=== PATIENT | female | born 2000 | race Caucasian/White ===

== ENCOUNTER 2024-10-09 15:08 | Emergency (ER) | payer OTHER, SELFPAY ==
[2024-10-09 15:11] VITALS: BP 110/70
--- NOTE | 2024-10-09 15:35 | ED.GENMED ---
History of Present Illness
General
Chief Complaint: Crisis Evaluation
Source: patient
Exam Limitations: none
Time Seen by Provider: 10/09/24 15:20
Nursing documentation reviewed up to this point in time: agreed with
History of Present Illness
History of Present Illness:
24-year-old female history of depression recent with her break-up feeling depressed cut at her wrist with scissors last evening, came to crisis today sent here to be medically evaluated, unsure of last tetanus shot abrasions are superficial, denies
any ingestions, no overt intoxication, denies
Past History
Past History
ED Past Medical History: Psychiatric
Social History
Tobacco: Non-smoker
Alcohol: None
Drug: None
Personal: Single
Living: with family
Employment: Employed
Review of Systems
Review of Systems
All Other Systems: Not applicable
Constitutional: Denies fever
Psychiatric: Reports depression and anxiety; Denies suicidal
Phy Exam
Physical Exam
Physical Exam:
Physical Exam
General: no apparent distress, not acutely ill
Neck: No jaundice
Lungs: no acute respiratory distress.
Neuro: alert and oriented. no focal neurological deficits
Skin: no rash
Psychiatric: Cooperative not intoxicated not hallucinating denies suicidal ideation admits to anxiety and depression
Extremities: 2 per Gabi abrasions on the volar surface of her wrist strong radial pulses bilaterally no signs of ligamentous tenderness nor arterial injury
Course
Orders/Labs/Results
Orders:
Orders
10/09/24 15:28
Wound Dressing- Treatment ONCE
Location of Wound: forearm
Drug Screen, Serum [Serum Drug Screen] [S] Urgent
HCG, Urine Qualitative Screen Urgent
Tetanus/Diphth/Acelpertussis [Adacel] 0.5 ml IM .ONCE ONE
Test Result ONCE
Vital Signs
Initial and Last Documented VS:
Initial Vital Signs
Temp Pulse Resp BP Pulse Ox
98.6 F 87 16 110/70 99
10/09/24 15:11 10/09/24 15:11 10/09/24 15:11 10/09/24 15:11 10/09/24 15:11
Last Documented Vital Signs
Temp Pulse Resp BP Pulse Ox
98.6 F 87 16 110/70 99
10/09/24 15:11 10/09/24 15:11 10/09/24 15:11 10/09/24 15:11 10/09/24 15:11
MDM/Problems Addressed
Differential Diagnosis Includes:
Anxiety depression cutting
MDM/Problems Addressed:
Anxiety depression,
Chronic conditions affecting care: Psychiatric illness
Acute Exacerbation and/or Progression of Chronic Illness: Psychiatric illness
*Pulse Oximetry
Patient hypoxic: no
Comment: 99
*Critical Care Note
Total Time (30-74mins, 75-104mins- exclusive of procedures): Not Applicable
Update Note
Update Note:
Update patient appears medically clear for psychiatric evaluation
ED Attending Note
-
Portions of this chart may have been created with voice recognition software.� Occasional wrong word or��sound alike� substitutions may have occurred due to the inherent limitations of voice recognition software.
Discharge Plan
Departure
Patient Disposition: [facility]
Date of Disposition: 10/09/24
Time of Disposition: 15:33
Condition: Good
Discharge Problem:
Visit for wound care, Depression with suicidal ideation
Instructions: Depression, Adult (DC)
Activity Restrictions/Additional Instructions:
Wash wounds with soap and water use antibiotic ointment
Interventions
Interventions:
*Risk Screen - Suicide Last Done: 10/09/24 15:11
*General Assessment Last Done: 10/09/24 15:11
*Neglect/Abuse Screening Last Done: 10/09/24 15:11
*ED- Fall Risk Assessment Last Done: 10/09/24 15:11
*ED COVID-19 Vaccine History Last Done: 10/09/24 15:11
Discharge Date and Time
Print Language: KOREAN
[2024-10-09] MEDS: ADACEL 0.5 ML IM (15:47)
[2024-10-09 16:00] LABS: HCG, Urine Qualitative Screen Negative
[2024-10-09 16:53] LABS: Amphetamines Negative (Negative); Barbiturates Negative (Negative); Benzodiazepines Negative (Negative); Buprenorphine Negative (Negative); Cocaine Negative (Negative); Marijuana Positive (Negative); Methadone Negative (Negative); Methamphetamines Negative (Negative); Opiates Negative (Negative); Phencyclidine Negative (Negative); Tricyclic Antidepressants Negative (Negative)
== END 2024-10-09 17:12 | disposition home or self-care (01) ==
LOC: EMR 15:08
PROVIDERS: EMERGENCY PHYSICIAN Emergency Medicine; FAMILY PHYSICIAN Family Medicine
DX: F32.A Depression, unspecified (principal); R45.851 Suicidal ideations; S60.811A Abrasion of right wrist, initial encounter; X78.8XXA Intentional self-harm by other sharp object, initial encounter; Z23 Encounter for immunization
CPT/HCPCS: 90471; 99283; 80306; 81025; 90715